=== PATIENT | female | born 1980 | race Caucasian/White ===

== ENCOUNTER 2018-08-22 07:26 | Day surgery (SDC) | payer OTHER ==
--- NOTE | 2018-08-04 01:30 | PREOPHP ---
DATE OF ADMISSION: 08/08/2018 The patient is having a D and C on 08/01/2018, hysteroscopy, removal of embedded IUD. HISTORY OF PRESENT ILLNESS: This is a 38-year-old female 1, para 1 with a history of a C-sec tion, appendectomy and a Mirena IUD that was inserted in 10/2017. She had the IUD also placed becaus e of her size 308 pounds and she was given the IUD instead of Depo shot that she was getting due to h er menometrorrhagia. The patient had an MRI that revealed that the situation of the IUD was near the cervix. The patient had the IUD string that was visible but it was not coming out easily for which the MRI was done and the MRI revealed that the IUD is embedded in the cervix. The patient would like to have another IUD because that is the only thing that helps for her menometrorrhagia. This will b e done after the removal of this IUD and to apply a new IUD after that. The patient also had a histo ry of a left Bartholin's cyst that was asymptomatic and uveitis. ALLERGIES: THE PATIENT DOES NOT HAVE ANY ALLERGIES. Her blood pressure is normal. REVIEW OF SYSTEMS: Negative for cardiovascular disease, negative for lung disease. She states she w as diagnosed with fibromyalgia and arthritis. SOCIAL HISTORY: She has no history of smoking or drinking. MEDICATIONS: She has been on: 1. Omeprazole. 2. Zantac. 3. Eye drops. PHYSICAL EXAMINATION: VITAL SIGNS: The patient weighs 308 pounds. Blood pressure is 110/60, respirations 16. HEAD AND NECK: Normal. CHEST: Clear. HEART: Normal sinus rhythm. LUNGS: Clear. ABDOMEN: Soft, nontender. No masses. BACK: Normal. GENITALIA: Negative. The cervix string. Uterus is retroverted and flexed, nonpalpable. Adne xa are negative. EXTREMITIES: Normal. DIAGNOSES: Malpositioned intrauterine device embedded in the cervical area with possible perforation and a history of left Bartholin's cyst. PLAN: She is undergoing a D and C hysteroscopy. She has been advised of the possible risks and poss ible complications of the procedure with her alternatives and options. Written information was provi ded. She had no more questions and agreed to go ahead with the procedure with full understanding and no more questions. Dictated By: LUIS CARLOS FERNANDES/WILMA Conf#: [id number] DID#: [id number]
--- NOTE | 2018-08-18 12:00 | PREOPHP ---
DATE OF ADMISSION: 08/08/2018 HISTORY OF PRESENT ILLNESS: This is a 38-year-old female 1, para 1 patient with a history of being morbidly obese with 1 previous , appendectomy and eye surgery. The patient has a his tory of abnormal uterine bleeding that had recovered and got better only with the Mirena IUD. The ul trasound obtained at the end of the last year revealed that the IUD was penetrating the uterus perfor ating with a history of morbid obesity. The bleeding was only controlled but the patient would like to have the removal of the IUD for future injection of another IUD after her healing. The patient wa s given an option of the Depo shot and to wait for 3 months for another IUD. The patient had a histo ry of irregular left Bartholin's cyst that was also asymptomatic and otherwise she has been healthy. She had uveitis and the left Bartholin cyst that was asymptomatic. 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 PAST MEDICAL HISTORY: Eye surgery, , appendectomy. MEDICATIONS: 1. Omeprazole. 2. Zantac. 3. Eye drops. FAMILY HISTORY: No issues with hypertension. No issues with any lung disease. Family history of di abetes. SOCIAL HISTORY: She does not drink or smoke. She has no diabetes and she has no other contributing factors in her physical examination. ALLERGIES: The patient has no history of drugs. ALLERGIES: She has no allergies. PHYSICAL EXAMINATION: VITAL SIGNS: Patient is 5 feet 7 inches and she weighs 308 pounds. Blood pressure is 110/60, pulse is 80, respirations 16. HEAD AND NECK: Normal. CHEST: Clear. BREASTS: Normal. HEART: Normal sinus rhythm. BACK: Normal. ABDOMEN: Soft, nontender, no masses. GENITALIA: Normal external genitalia. Uterus retroverted, flexed, nonpalpable due to her obesity an d nontender at this time. RECTAL: Negative. EXTREMITIES: Normal. DIAGNOSES: 1. Morbid obesity. 2. Menometrorrhagia. 3. Uveitis. 4. Asymptomatic left Bartholin's cyst. 5. Mirena IUD perforating her uterus. PLAN: She is undergoing a fractional D and C, removal of IUD and hysteroscopy. She has been advised of the possible risks and possible complications of the procedure with her alternatives and options. Written information was provided. She had no more questions and agreed to go ahead with the proced ure with full understanding and no more questions. Dictated By: LUIS CARLSO FERNANDES/NTS Conf#: [id number] DID#: [id number]
[~2018-08-22] VITALS: Ht 170.2 cm; Wt 139.0 kg
[2018-08-22] VITALS (9 sets, daily range): BP systolic 102–114; BP diastolic 51–61; PULSE 60–100; RESP 12–60; Ht 170.2 cm; Wt 139.0 kg
[~2018-08-22 07:26] MED LIST: CEFAZOLIN 1 GM INJ ONE
[2018-08-22] MEDS ORDERED: CEFAZOLIN 2 GM/50 ML (PMX) 50 ML IVPB ONE (08:00)
[2018-08-22] MEDS ORDERED: BRIM10DR10 RIGHT EYE (08:08)
[2018-08-22] MEDS ORDERED: PRED5DRO20 BOTH EYES (08:08)
[2018-08-22] MEDS ORDERED: IBUP-1544 ORAL (08:08)
[2018-08-22] MEDS ORDERED: OMEP40CA6 ORAL (08:08)
[2018-08-22] MEDS ORDERED: RANI150T5 ORAL (08:08)
[2018-08-22] MEDS ORDERED: DORZ10DR6 RIGHT EYE (08:08)
[2018-08-22] MEDS ORDERED: ACET250T22 ORAL (08:08)
--- NOTE | 2018-08-22 08:57 | PREAC ---
Date/Time of Note Date/Time of Note DATE: 08/22/18 TIME: 08:56 Anesthesia Eval and Record Evaluation Time Pre-Procedure Interview DATE: 08/22/18 TIME: 08:56 Age 38 Sex female NPO: 8 hrs Preoperative diagnosis entrapped IUD Planned procedure D&C, hysteroscopy Past Medical History Past Medical History: Includes Cardio: Dyslipidemia Endo: Diabetes GI: GERD, Morbid obesity Surgery & Anesthesia Issues No known issue Meds Anticoagulation: No Beta Leidy within 24 hr: No Reason Beta Leidy not given: Pt. not on B-Leidy Reported Medications Omeprazole* (Omeprazole*) 40 Mg Capsule.dr, 40 MG ORAL DAILY 08/22/18 Ranitidine Hcl* (Ranitidine Hcl*) 150 Mg Tablet, 150 MG ORAL BID 08/22/18 Ibuprofen* (Ibuprofen*) 800 Mg Tablet, 800 MG ORAL Q6 PRN for PAIN LEVEL 6-10 08/22/18 Dorzolamide/Timolol* (Dorzolamide/Timolol*) 10 Ml Drops, 1 DROP OP BID 08/22/18 Brimonidine Tartrate* (Brimonidine Tartrate*) 0.15%-10ML Drop Opht, 1 DROP OP BID 08/22/18 Prednisolone Acetate* (Pred Forte*) 5 Ml Susp, 1 DROP OP BID 08/22/18 Acetazolamide* (Acetazolamide*) 250 Mg Tablet, 1 TAB ORAL BID 08/22/18 Meds reviewed: Yes Allergies Coded Allergies: No Known Allergy (Unverified , 08/22/18) Allergies Reviewed: Yes Labs/Studies Labs Reviewed: Reviewed by anesthesiologist test: Negative Pre-procedure Exam Last vitals Vital Signs Date Temp Pulse Resp B/P (MAP) Pulse Ox O2 O2 Flow FiO2 Time Delivery Rate 08/22/18 97.3 60 60 110/55 99 Room Air 08:44 (73) Airway: Adequate mouth opening, Adequate thyromental dist Mallampati: Mallampati II Teeth: Normal Lung: Normal Heart: Normal ASA Physical Status ASA physical status: 3 Emergency: None Planned Anesthetic General/MAC: Mask, ETT, LMA, MAC Neuraxial: Spinal Pre-operative Attestations Prior to commencing anesthesia and surgery, the patient was re-evaluated, there was verification of: *The patient's identity *The results of appropriate recent lab work and preoperative vital signs *The above evaluation not changing prior to induction *Anesthetic plan, risk benefits, alternative and complications discussed with patient/family; questions answered; patient/family understands, accepts and wishes to proceed. MARY ANN RUTLEDGE Aug 22, 2018 08:57
[2018-08-22] MEDS ORDERED: FENTAnyl 50 MCG/ML VIAL IV PRN ×2 (09:00)
[2018-08-22] MEDS ORDERED: ALBUTEROL 0.083% (NEB) 2.5 MG/3 ML AMP HHN PRN (09:00)
[2018-08-22] MEDS ORDERED: METOCLOPRAMIDE 10 MG INJ IV PRN (09:00)
[2018-08-22] MEDS ORDERED: ONDANSETRON 4 MG INJ IV PRN ×2 (09:00→11:30)
[2018-08-22] MEDS ORDERED: MEPERIDINE 25 MG INJ IV PRN (09:00)
[2018-08-22] MEDS ORDERED: DIPHENHYDRAMINE 50 MG INJ IV PRN (09:00)
[2018-08-22] MEDS ORDERED: HYDROmorphONE 1 MG/5 ML IV SYRINGE IV PRN ×3 (09:00)
--- NOTE | 2018-08-22 09:30 | HPN ---
Date/Time of Note Date/Time of Note DATE: 08/22/18 TIME: 09:29 Interval H&P Admission Note Pt. seen H&P reviewed: No system changes LUIS CARLOS GILMORE MD Aug 22, 2018 09:30
[2018-08-22] MEDS ORDERED: MIDAZOLAM 1 MG/ML 2 ML INJ ONE (09:51)
[2018-08-22] MEDS ORDERED: BUPIVACAINE 0.75%/DEXT (SPINAL) 2 ML INJ ONE (09:51)
[2018-08-22] MEDS ORDERED: PHENYLephrine (100 MCG/ML) 10ML SYG ONE (09:52)
[2018-08-22] MEDS ORDERED: ONDANSETRON 4 MG INJ ONE ×2 (09:55→10:01)
--- NOTE | 2018-08-22 10:55 | PD.PPDC ---
PUBLIC RELATIONS PROFESSIONAL Discharge Instruction Condition [id number] Patient Condition: Dkbjp1b Good Diet Xparn4Dm Diet: Cnbrh9q Resume Regular Diet Activity/Restrictions Drnyn2Ae Activity: Iyuxm0g Normal Activity May Shower [id number] Restrictions: Xibem2r No Exercising No Lifting No Driving No Sexual Activity Nothing in the Vagina No [place] No Tampons, douche Follow-up Follow-up with Physician: 2, Week/Weeks Return to clinic for [id number] SUPERVISOR WOUND Instructions: Kimjf5d Fever greater than 101 Chills Worsening abdominal pain Excessive Vaginal Bleeding More than 2 pads per hour Unable to tolerate diet LUIS CARLOS GILMORE MD Aug 22, 2018 10:55
--- NOTE | 2018-08-22 11:05 | SIPON ---
Date/Time of Note Date/Time of Note DATE: 08/22/18 TIME: 11:04 Operative Report Preoperative Diagnosis Intractable menometrorrhagia morbid obesity IUD perforating uterus Postoperative Diagnosis Same Operation/Procedure Performed D&C hysteroscopy Surgeon see signature line psychiatric assistant None Anesthesia: general, spinal Estimated blood loss: 0 - 10 ml's Transfusion Required none Specimen Endometrial contents and IUD Grafts/Implants none Complications none LUIS CARLOS GILMORE MD Aug 22, 2018 11:05
[2018-08-22] MEDS ORDERED: KETOROLAC 30 MG INJ IV PRN (11:30)
--- NOTE | 2018-08-22 13:37 | OPR ---
DATE OF OPERATION: 08/22/2018 PROCEDURES: Diagnostic D and C, hysteroscopic ablation of endometrium with TruClear machine. PREOPERATIVE DIAGNOSES: 1. Intractable menometrorrhagia. 2. Morbid obesity. 3. Intrauterine device perforating the uterus. SURGEON: Luis Carlos Boykin MD ANESTHESIOLOGIST: Woo Turcios MD ANESTHESIA: Spinal. DESCRIPTION OF PROCEDURE: The patient was given a spinal anesthesia, placed in the supine position. The abdomen was prepped and draped. The perineal and vaginal area were prepped and draped. Examina tion under anesthesia revealed that the uterus was normal size, high in the pelvis, mobile, nontender . Adnexa were nonpalpable. The vaginal speculum was applied. The cervix was held and the IUD strin g was pulled and the IUD came off, coming out of the cervical perforation. The uterus was dilated sl ightly up to 7 mm trocar and the hysteroscope was applied. The visualization of the endometrial cavi ty revealed that there were abundant polyps that were all over the lateral wall and posterior and ant erior wall. Shaving of the cavity was done with the TruClear hysteroscope and then this was done to the anterior, posterior, lateral chapman. There was lots of ____ at the level of the cervix for which ____ pressure and we decided to go ahead with the regular curet. The hysteroscope was removed and th e curettage of the lining of the uterus was done obtaining tissue for histopathology. The procedure was finished by removing all the instruments. The patient tolerated the procedure well and left the OR awake and stable. Sponge counts and instrument counts were correct. Intravenous antibiotics were given for prophylaxis. Blood loss was minimal. The urine was clear at the end of the procedure. Dictated By: LUIS CARLOS FERNANDES/WILMA Conf#: [id number] DID#: [id number]
--- NOTE | 2018-08-22 15:11 | RADRPT ---
Vent Rate: 58 bpm RR Interval: 0 msec WA Interval: 124 msec QRS Duration: 88 msec QT Interval: 432 msec QTC Interval: 424 msec P-R-T [place]: 25 - 28 - 43 degrees Sinus bradycardia Otherwise normal ECG Electronically Signed By: Heath De La Fuente
--- NOTE | 2018-08-25 07:36 | PAC ---
Date/Time of Note Date/Time of Note DATE: 08/25/18 TIME: 07:36 Post-Anesthesia Notes Post-Anesthesia Note Last documented vital signs Vital Signs Date Temp Pulse Resp B/P (MAP) Pulse Ox O2 O2 Flow FiO2 Time Delivery Rate 08/22/18 97.3 60 16 110/55 99 13:30 (73) 08/22/18 Room Air 11:04 Activity: WNL Respiratory function: WNL Cardiovascular function: WNL Mental status: Baseline Pain reasonably controlled: Yes Hydration appropriate: Yes Nausea/Vomiting absent: Yes MARY ANN RUTLEDGE Aug 25, 2018 07:36
== END 2018-08-22 16:40 | disposition home or self-care (01) ==
LOC: SDS 07:26
PROVIDERS: ATTEND Obstetrics & Gynecology
DX: N92.1 Excessive and frequent menstruation with irregular cycle (principal); T83.83XA Hemorrhage due to genitourinary prosthetic devices, implants and grafts, initial encounter; Y84.8 Other medical procedures as the cause of abnormal reaction of the patient, or of later complication, without mention of misadventure at the time of the procedure; Y76.1 Therapeutic (nonsurgical) and rehabilitative obstetric and gynecological devices associated with adverse incidents; E66.01 Morbid (severe) obesity due to excess calories; Z68.42 Body mass index [BMI] 45.0-49.9, adult; E78.5 Hyperlipidemia, unspecified; E11.9 Type 2 diabetes mellitus without complications
CPT/HCPCS: 58563; 84703; 88300; 88305; 93005; J1885; J2250; J2370; J2405; Z7512; Z7610; J0690

== ENCOUNTER 2018-08-26 17:36 | Inpatient (IN) | payer OTHER ==
[~2018-08-26] VITALS: Ht 170.2 cm; Wt 140.0 kg
[~2018-08-26 17:36] MED LIST changes: +ACET250T22 ORAL; +BRIM10DR10 RIGHT EYE; -CEFAZOLIN 1 GM INJ ONE; +DORZ10DR6 RIGHT EYE; +IBUP-1544 ORAL; +OMEP40CA6 ORAL; +PRED5DRO20 BOTH EYES; +RANI150T5 ORAL
[2018-08-26 20:15] VITALS: BP 118/59; RESP 18
--- NOTE | 2018-08-26 20:47 | HP ---
Date/Time of Note Date/Time of Note DATE: 08/26/18 TIME: 20:46 Assessment/Plan VTE Prophylaxis SCD applied (from Nsg): Yes Pharmacological prophylaxis: NA/contraindicated Pharm contraindication: low risk/ambulating Assessment/Plan Hospital Course This is a 38-year [facility]: #1 postdural headache: Status post spinal anesthesia from OB surgery. Fioricet every 6 hours. Patient did receive morphine at the transferring facility, and she is hesitant to try p.o. meds. I did discuss this with her and she is willing to try Fioricet at the current time she is requesting morphine given her pain and that it helped at the transferring facility. Will defer to day team and consulting IR for blood patch placement. #2 Postop vaginal bleeding: Patient is status post D&C and removal of IUD. She is reporting vaginal bleeding which she was told by the OB would be expected. Patient reports she has used approximately 6 pads in 2 days. Continue to monitor this if bleeding continues consult OB. #3 glaucoma: Continue home eyedrops #4 morbid obesity: We will check hemoglobin A1c, lipid panel, TSH #5 Fibromyalgia: Monitor pain closely, follow-up outpatient #6 rheumatoid arthritis: Currently not on any medications #7 DVT GI prophylaxis: SCDs, no GI prophylaxis indicated Further treatment strategy will be implemented as per the clinical course. HPI/ROS Admit Date/Time Admit Date/Time Aug 26, 2018 at 19:44 Hx of Present Illness Chief complaint:: Vaginal bleeding this is a 38-year-old female With a past medical history of fibromyalgia and rheumatoid arthritis who presented to [facility] complaining of vomiting for more than 5 days. Patient also has nausea and abdominal pain or vaginal bleeding with approximately 6 pads over the past 2 days. She will reported migraines as well as dizziness and feeling off balance. She denies any fevers chills or cough or chest pain or shortness of breath. Patient had a D&C and IUD removal on 08/22/2018 by . Because she continued to have her bleeding symptoms she contacted her OB doctor who told her to go to [facility]. Patient subsequently transferred to [facility] secondary to insurance purposes. Vital signs at [facility]: Temperature 36.9C/BP 150/78/respirations 20/heart rate 59/SPO2 91% on room air Pertinent laboratory findings from transfer facility showed: Urinalysis large blood, specific gravity 1.050 CBC: White blood cells 11.8/hemoglobin 12.5/hematocrit 39.5/platelets 280 INR 1.3 PT [address] abdomen pelvis with IV contrast showed: No acute inflammatory process mass or adenopathy. Cholelithiasis no obvious CT evidence of acute cholecystitis. Fatty change of liver. 1.6 cm Bartholin gland cyst in the vaginal. No secondary signs of appendicitis. Bilateral ovarian cysts/follicles. If indicated this can be better evaluated pelvic ultrasound. Allergies: NKDA Medications: See Aug Const: As per HPI Eyes : No pain discharge or redness or change in visual acuity ENT: No pain, sore throat, congestion, congestion, dysphagia or discharge Respiratory: No shortness of breath, cough, sputum, wheezing, or pleuritic pain Cardiovascular: No chest pain, palpitation, PND, or edema GI : no change in appetite, abdominal pain, nausea, vomiting, diarrhea, constipation, or change in the color his stool Genitourinary: No dysuria, hematuria, flank pain , discharge or CVA tenderness Musculoskeletal: No joint pain, back pain, neck pain, restricted range of motion in neck or joints Skin: No rash, bruising or hives Neuro: As per HPI Endocrine: No polyuria, polydipsia, temperature intolerance Psych: No hallucination, depression, anxiety or suicidal ideation PMH/Family/Social Past Medical History Fibromyalgia, arthritis, menometrorrhagia Medications Current Medications IV Flush (NS 3 ml) 3 ml PER PROTOCOL IV ; Start 08/26/18 at 21:00 Ondansetron HCl (Zofran Inj) 4 mg Q6H PRN IV NAUSEA/VOMITING; Start 08/26/18 at 21:00 Acetaminophen (Tylenol Tab) 650 mg Q6H PRN PO .PAIN 1-3 OR TEMP; Start 08/26/18 at 21:00 Docusate Sodium (Colace) 100 mg Q12H PRN PO .CONSTIPATION; Start 08/26/18 at 21:00 Bisacodyl (Dulcolax) 5 mg DAILY PRN PO .CONSTIPATION; Start 08/26/18 at 21:00 Acetaminophen/ Butalbital/ Caffeine (Fioricet) 1 tab Q4H PRN PO PAIN; Start 08/26/18 at 21:00 Coded Allergies: No Known Allergy (Unverified , 08/22/18) Past Surgical History , appendectomy, and a Mirena IUD that was inserted in 10/2017, Diagnostic D and C, hysteroscopic ablation of endometrium 08/22/2018 Family History Significant Family History: no pertinent family hx Social History Alcohol Use: none Smoking Status: Never smoker Drug Use: none Exam/Review of Systems Exam Exam General: Patient is a pleasant female currently lying in bed in moderate distress from her headache HEENT: Atraumatic, normocephalic. The pupils are equal, round and reactive. Extraocular motor are intact Neck: Supple with full range of motion. No rigidity or meningismus Chest: Nontender Lungs: Clear to auscultation bilaterally no crackles rales or wheezing Heart: Normal S1-S2, Regular rhythm and rate. No murmur, S3, or S4 Abdomen: Morbidly obese, soft , nontender, nondistended , bowel sounds are present. No guarding no rebound tenderness , No masses or organomegaly. No costovertebral temporal angle mass Extremities: Normal to inspection, no edema no cyanosis Neurologic: Normal mental status, speech normal, cranial nerves II through XII are intact, motor and sensory are intact, Skin: Bruising/ecchymosis noted from epidural site CINDY BISHOP Aug 26, 2018 20:47
[2018-08-26] MEDS ORDERED: ACETAMINOPHEN 325 MG TAB PO PRN (21:00)
[2018-08-26] MEDS ORDERED: BISACODYL (EC) 5 MG TAB PO PRN (21:00)
[2018-08-26] MEDS ORDERED: NACL 0.9% 3 ML SYG IV SCH (21:00)
[2018-08-26] MEDS ORDERED: DOCUSATE SODIUM 100 MG CAP PO PRN (21:00)
[2018-08-26 23:01] VITALS: Ht 170.2 cm; Wt 140.0 kg
[2018-08-26] MEDS: ONDANSETRON 4 MG INJ IV PRN (23:38)
[2018-08-26] MEDS: ACET/BUTAL/CAFF TAB PO PRN (23:38)
[2018-08-26] MEDS: morphine 2 MG INJ IV PRN (23:49)
[2018-08-26] MEDS ORDERED: PANTOPRAZOLE 40 MG INJ IV ONE (23:55)
[2018-08-27 00:49] VITALS: BP 107/54; PULSE 60; RESP 17
[2018-08-27] MEDS ORDERED: POTASSIUM CHLORIDE (SR) 20 MEQ TAB PO STA (01:32)
[2018-08-27] MEDS ORDERED: RHOPRESSA BOTH EYES (03:15)
[2018-08-27] MEDS: ACET/BUTAL/CAFF TAB PO PRN ×3 (03:32→21:03)
[2018-08-27] MEDS: morphine 2 MG INJ IV PRN ×3 (04:26→22:16)
[2018-08-27] MEDS: METOCLOPRAMIDE 10 MG INJ IV PRN ×2 (04:26→21:20)
[2018-08-27] MEDS: PANTOPRAZOLE (EC) 40 MG TAB PO SCH ×2 (06:00→08:49)
[2018-08-27] MEDS: PANTOPRAZOLE 40 MG INJ IV SCH (06:00)
[2018-08-27 08:23] VITALS: BP 100/55; PULSE 70; RESP 18
[2018-08-27] MEDS: PREDNISOLONE ACET 1% 5 ML OPH BOTH EYES SCH ×2 (08:42→21:24)
[2018-08-27] MEDS: DORZOLAMIDE/TIMOLOL 10 ML OPH RIGHT EYE SCH ×2 (08:42→22:12)
[2018-08-27] MEDS: BRIMONIDINE 0.15% 5 ML OPH RIGHT EYE SCH ×2 (08:42→22:16)
[2018-08-27] MEDS ORDERED: MAGNESIUM SULFATE 2 GM/50 ML 50 ML IVPB ONE (10:00)
[2018-08-27] MEDS ORDERED: POTASSIUM CHLORIDE 100 ML IVPB SCH (10:00)
[2018-08-27] MEDS: BACLOFEN 10 MG TAB PO PRN (11:49)
[2018-08-27 15:02] VITALS: BP 123/63; PULSE 72; RESP 18
--- NOTE | 2018-08-27 15:38 | PN ---
Date/Time of Note Date/Time of Note DATE: 08/27/18 TIME: 15:30 Assessment/Plan VTE Prophylaxis Risk score (from Nsg)>0 risk: 3 SCD applied (from Nsg): Yes SCD contraindicated: low risk/ambulating Pharmacological prophylaxis: NA/contraindicated Pharm contraindication: low risk/ambulating Lines/Catheters IV Catheter Type (from Nrsg): Peripheral IV Assessment/Plan Assessment/Plan 38 yo morbidly obese woman with postural headache and vomiting after D&C with IUD removal. # postural headache: - Status post spinal anesthesia from OB surgery. - Fioricet every 6 hours. - Symptoms appear to be improving. Will hold off on blood patch. # Postop vaginal bleeding: - Patient is status post D&C and removal of IUD. - Currently report soaking 3 pads per day. - Will consult Dr. Mccabe # glaucoma: Continue home eyedrops # morbid obesity: We will check hemoglobin A1c, lipid panel, TSH # Fibromyalgia: Monitor pain closely, follow-up outpatient # rheumatoid arthritis: Currently not on any medications # DVT GI prophylaxis: SCDs, no GI prophylaxis indicated Result Diagram: 08/27/18 0434 08/27/18 0434 Subjective 24 Hr Interval Summary Free Text/Dictation Tolerating diet, mild nausea, no more vomiting. Reports migraine today similar to migraine 10 years ago. Able to stand with minimal assistance. Reports sensation of "fluid dripping down face", but no worsening headache. Able to shower today. Exam/Review of Systems Exam Vitals Vital Signs Date Temp Pulse Resp B/P (MAP) Pulse Ox O2 O2 Flow FiO2 Time Delivery Rate 08/27/18 98.4 70 18 100/55 97 Room Air 08:23 (70) Intake and Output 08/26/18 08/26/18 08/27/18 1515:00 23:00 07:00 IntakeIntake Total 240 ml OutputOutput Total 1 ml BalanceBalance 239 ml Exam Gen: Morbidly obese woman in some discomfort. Eyes: Pupils nonreactive bilaterally. Both eyes soft to palpation. HEENT: Moist mucous membranes, clear oropharynx Neck: No lymphadenopathy Card: Regular rate and rhythm, no murmurs Pulm: Clear to auscultation bilaterally. Abd: Soft, nontender, nondistended. Back: Lumbar spine ecchymosis without palpable hematoma; nontender. Ext: No cyanosis/clubbing/edema Results Results 24hrs Laboratory Tests Test 08/26/18 20:59 08/27/18 04:34 White Blood Count 10.3 10.4 Red Blood Count 3.86 L 3.92 L Hemoglobin 11.3 L 11.5 L Hematocrit 35.4 L 36.2 L Mean Corpuscular Volume 91.7 92.3 Mean Corpuscular Hemoglobin 29.3 29.3 Mean Corpuscular Hemoglobin Concent 31.9 L 31.8 L Red Cell Distribution Width 13.3 13.3 Platelet Count 274 294 Mean Platelet Volume 10.7 H 11.2 H Immature Granulocytes % 0.300 0.400 Neutrophils % 50.5 54.5 Lymphocytes % 39.1 35.7 Monocytes % 7.4 6.0 Eosinophils % 2.1 2.6 Basophils % 0.6 0.8 Nucleated Red Blood Cells % 0.0 0.0 Immature Granulocytes # 0.030 0.040 H Neutrophils # 5.2 5.7 Lymphocytes # 4.0 H 3.7 H Monocytes # 0.8 0.6 Eosinophils # 0.2 0.3 Basophils # 0.1 0.1 Nucleated Red Blood Cells # 0.0 0.0 Sodium Level 141 142 Potassium Level 3.2 L 3.2 L Chloride Level 107 108 Carbon Dioxide Level 25 25 Anion Gap 9 9 Blood Urea Nitrogen 9 9 Creatinine 0.66 0.71 Est Glomerular Filtrat Rate mL/min > 60 > 60 Glucose Level 97 114 Calcium Level 8.7 8.7 Magnesium Level 1.7 1.6 L Total Bilirubin 0.3 0.5 Direct Bilirubin 0.00 0.00 Indirect Bilirubin 0.3 0.5 Aspartate Amino Transf (AST/SGOT) 45 44 Alanine Aminotransferase (ALT/SGPT) 69 67 Alkaline Phosphatase 83 82 Total Protein 7.3 7.2 Albumin 3.6 3.7 Globulin 3.70 H 3.50 H Albumin/Globulin Ratio 0.97 1.05 Thyroid Stimulating Hormone (TSH) 2.940 Medications Medication Current Medications IV Flush (NS 3 ml) 3 ml PER PROTOCOL IV ; Start 08/26/18 at 21:00 Ondansetron HCl (Zofran Inj) 4 mg Q6H PRN IV NAUSEA/VOMITING Last administered on 08/26/18at 23:38; Admin Dose 4 MG; Start 08/26/18 at 21:00 Acetaminophen (Tylenol Tab) 650 mg Q6H PRN PO .PAIN 1-3 OR TEMP; Start 08/26/18 at 21:00 Docusate Sodium (Colace) 100 mg Q12H PRN PO .CONSTIPATION; Start 08/26/18 at 2 1:00 Bisacodyl (Dulcolax) 5 mg DAILY PRN PO .CONSTIPATION; Start 08/26/18 at 21:00 Acetaminophen/ Butalbital/ Caffeine (Fioricet) 1 tab Q4H PRN PO PAIN Last administered on 08/27/18 03:32; Admin Dose 1 TAB; Start 08/26/18 at 21:00 Morphine Sulfate (morphine) 2 mg Q4H PRN IV SEVERE PAIN LEVEL 7-10 Last administered on 08/27/18 04:26; Admin Dose 2 MG; Start 08/26/18 at 22:30 Pantoprazole (Protonix Iv) 40 mg DAILY@06 IV ; Start 08/27/18 at 06:00 Brimonidine Tartrate (Alphagan P 0.15%) 1 drop BID RIGHT EYE Last administered on 08/27/18 08:42; Admin Dose 1 DROP; Start 08/27/18 at 09:00 Dorzolamide/ Timolol (Cosopt) 1 drop BID RIGHT EYE Last administered on 08/27/18 08:42; Admin Dose 1 DROP; Start 08/27/18 at 09:00 Prednisolone Acetate (Pred-Forte 1%) 1 drop BID BOTH EYES Last administered on 08/27/18 08:42; Admin Dose 1 DROP; Start 08/27/18 at 09:00 Patient Own Medication 1 ea QHS BOTH EYES ; Start 08/27/18 at 21:00 Metoclopramide HCl (Reglan) 10 mg Q4H PRN IV NAUSEA Last administered on 08/27 04:26; Admin Dose 10 MG; Start 08/27/18 at 04:00 Pantoprazole (Protonix Tab) 40 mg DAILY@06 PO Last administered on 08/27/18 08:49; Admin Dose 40 MG; Start 08/27/18 at 06:00 Baclofen (Lioresal) 10 mg TID PRN PO muscle spasm Last administered on 08/27/18 11:49; Admin Dose 10 MG; Start 08/27/18 at 11:00 DENNIS MCKEON MD Aug 27, 2018 15:38
[2018-08-27] MEDS: ONDANSETRON 4 MG INJ IV PRN (16:52)
[2018-08-27 20:20] VITALS: BP 126/61; PULSE 64; RESP 18
[2018-08-27] MEDS: RHOPRESSA 0.02% BOTH EYES SCH (21:12)
[2018-08-28 01:54] VITALS: BP 114/59; PULSE 64; RESP 19
[2018-08-28] MEDS: METOCLOPRAMIDE 10 MG INJ IV PRN ×3 (03:52→21:13)
[2018-08-28] MEDS: morphine 2 MG INJ IV PRN ×5 (03:55→21:13)
[2018-08-28] MEDS: ACET/BUTAL/CAFF TAB PO PRN ×3 (05:18→21:13)
[2018-08-28] MEDS: PANTOPRAZOLE 40 MG INJ IV SCH (05:18)
[2018-08-28 07:39] VITALS: BP 128/63; PULSE 61; RESP 18
[2018-08-28] MEDS: ONDANSETRON 4 MG INJ IV PRN ×2 (08:16→16:08)
[2018-08-28] MEDS: BRIMONIDINE 0.15% 5 ML OPH RIGHT EYE SCH ×2 (08:20→21:12)
[2018-08-28] MEDS: DORZOLAMIDE/TIMOLOL 10 ML OPH RIGHT EYE SCH ×2 (08:20→21:12)
[2018-08-28] MEDS: PREDNISOLONE ACET 1% 5 ML OPH BOTH EYES SCH ×2 (08:20→21:11)
[2018-08-28 14:48] VITALS: BP 119/56; PULSE 62; RESP 18
--- NOTE | 2018-08-28 16:05 | PN ---
Date/Time of Note Date/Time of Note DATE: 08/28/18 TIME: 15:54 Assessment/Plan VTE Prophylaxis Risk score (from Nsg)>0 risk: 1 SCD applied (from Ns): Yes Pharmacological prophylaxis: NA/contraindicated Pharm contraindication: low risk/ambulating Lines/Catheters IV Catheter Type (from Nrsg): Saline Lock Assessment/Plan Assessment/Plan 38 yo morbidly obese woman with postural headache and vomiting after D&C with IUD removal. # postural headache: - Status post epidural anesthesia from OB surgery on 08/22 (Dr. Turcios did the anesthesia) - Fioricet every 6 hours. - Symptoms appear to be improving. Will discuss with anesthesia if blood patch may be warranted, although personally it sounds like symptoms are resolving on their own. # Postop vaginal bleeding: - Patient is status post D&C and removal of IUD. - Currently report soaking 3 pads per day. - consult Dr. Mccabe # glaucoma: Continue home eyedrops # morbid obesity: We will check hemoglobin A1c, lipid panel, TSH # Fibromyalgia: Monitor pain closely, follow-up outpatient # rheumatoid arthritis: Currently not on any medications # DVT GI prophylaxis: SCDs, no GI prophylaxis indicated Result Diagram: 08/28/18 1050 08/28/18 1050 Subjective 24 Hr Interval Summary Free Text/Dictation No acute overnight events. She does continue to report mild headache with positional changes. I tried to reach Dr. Turcios but he's off today. Exam/Review of Systems Exam Vitals Vital Signs Date Temp Pulse Resp B/P (MAP) Pulse Ox O2 O2 Flow FiO2 Time Delivery Rate 08/28/18 98.4 62 18 119/56 97 14:48 (77) 08/27/18 Room Air 15:02 Intake and Output 08/27/18 08/27/18 08/28/18 1414:59 22:59 06:59 IntakeIntake Total 890 ml BalanceBalance 890 ml Exam Gen: Morbidly obese woman in some discomfort. Eyes: Pupils nonreactive bilaterally. Both eyes soft to palpation. HEENT: Moist mucous membranes, clear oropharynx Neck: No lymphadenopathy Card: Regular rate and rhythm, no murmurs Pulm: Clear to auscultation bilaterally. Abd: Soft, nontender, nondistended. Back: Lumbar spine ecchymosis without palpable hematoma; nontender. Ext: No cyanosis/clubbing/edema Results Results 24hrs Laboratory Tests Test 08/28/18 10:50 White Blood Count 8.8 Red Blood Count 4.16 L Hemoglobin 12.1 Hematocrit 38.2 Mean Corpuscular Volume 91.8 Mean Corpuscular Hemoglobin 29.1 Mean Corpuscular Hemoglobin Concent 31.7 L Red Cell Distribution Width 13.2 Platelet Count 303 Mean Platelet Volume 11.5 H Immature Granulocytes % 0.200 Neutrophils % 54.7 Lymphocytes % 36.0 Monocytes % 5.7 Eosinophils % 2.8 Basophils % 0.6 Nucleated Red Blood Cells % 0.0 Immature Granulocytes # 0.020 Neutrophils # 4.8 Lymphocytes # 3.2 H Monocytes # 0.5 Eosinophils # 0.3 Basophils # 0.1 Nucleated Red Blood Cells # 0.0 Sodium Level 138 Potassium Level 3.8 Chloride Level 102 Carbon Dioxide Level 29 Anion Gap 7 Blood Urea Nitrogen 9 Creatinine 0.70 Est Glomerular Filtrat Rate mL/min > 60 Glucose Level 115 Calcium Level 9.1 Phosphorus Level 3.3 Magnesium Level 1.9 Medications Medication Current Medications IV Flush (NS 3 ml) 3 ml PER PROTOCOL IV ; Start 08/26/18 at 21:00 Ondansetron HCl (Zofran Inj) 4 mg Q6H PRN IV NAUSEA/VOMITING Last administered on 08/28/18at 08:16; Admin Dose 4 MG; Start 08/26/18 at 21:00 Acetaminophen (Tylenol Tab) 650 mg Q6H PRN PO .PAIN 1-3 OR TEMP; Start 08/26/18 at 21:00 Docusate Sodium (Colace) 100 mg Q12H PRN PO .CONSTIPATION; Start 08/26/18 at 21:00 Bisacodyl (Dulcolax) 5 mg DAILY PRN PO .CONSTIPATION Last administered on 08/28/18at 15:44; Admin Dose 5 MG; Start 08/26/18 at 21:00 Acetaminophen/ Butalbital/ Caffeine (Fioricet) 1 tab Q4H PRN PO PAIN Last administered on 08/28/18at 13:03; Admin Dose 1 TAB; Start 08/26/18 at 21:00 Morphine Sulfate (morphine) 2 mg Q4H PRN IV SEVERE PAIN LEVEL 7-10 Last administered on 08/28/18at 12:00; Admin Dose 2 MG; Start 08/26/18 at 22:30 Pantoprazole (Protonix Iv) 40 mg DAILY@06 IV Last administered on 08/28/18 05:18; Admin Dose 40 MG; Start 08/27/18 at 06:00 Brimonidine Tartrate (Alphagan P 0.15%) 1 drop BID RIGHT EYE Last administered on 08/28/18 08:20; Admin Dose 1 DROP; Start 08/27/18 at 09:00 Dorzolamide/ Timolol (Cosopt) 1 drop BID RIGHT EYE Last administered on 08/28/18 08:20; Admin Dose 1 DROP; Start 08/27/18 at 09:00 Prednisolone Acetate (Pred-Forte 1%) 1 drop BID BOTH EYES Last administered on 08/28/18 08:20; Admin Dose 1 DROP; Start 08/27/18 at 09:00 Patient Own Medication 1 ea QHS BOTH EYES Last administered on 08/27/18 21:12; Admin Dose 1 EA; Start 08/27/18 at 21:00 Metoclopramide HCl (Reglan) 10 mg Q4H PRN IV NAUSEA Last administered on 08/28/18 12:00; Admin Dose 10 MG; Start 08/27/18 at 04:00 Pantoprazole (Protonix Tab) 40 mg DAILY@06 PO Last administered on 08/27/18 08:49; Admin Dose 40 MG; Start 08/27/18 at 06:00 Baclofen (Lioresal) 10 mg TID PRN PO muscle spasm Last administered on 08/27/18 11:49; Admin Dose 10 MG; Start 08/27/18 at 11:00 DENNIS MCKEON MD Aug 28, 2018 16:04
[2018-08-28 19:15] VITALS: BP 109/52; PULSE 75; RESP 18
[2018-08-28] MEDS: RHOPRESSA 0.02% BOTH EYES SCH (21:11)
[2018-08-29 02:20] VITALS: BP 102/50; PULSE 64; RESP 20
[2018-08-29] MEDS: PANTOPRAZOLE (EC) 40 MG TAB PO SCH ×2 (05:54→08:24)
[2018-08-29 07:47] VITALS: BP 123/63; PULSE 66; RESP 18
[2018-08-29] MEDS: PREDNISOLONE ACET 1% 5 ML OPH BOTH EYES SCH ×2 (08:20→21:45)
[2018-08-29] MEDS: BRIMONIDINE 0.15% 5 ML OPH RIGHT EYE SCH ×2 (08:20→21:46)
[2018-08-29] MEDS: DORZOLAMIDE/TIMOLOL 10 ML OPH RIGHT EYE SCH ×2 (08:20→21:45)
--- NOTE | 2018-08-29 14:59 | PN ---
Date/Time of Note Date/Time of Note DATE: 08/29/18 TIME: 14:56 Assessment/Plan VTE Prophylaxis Risk score (from Nsg)>0 risk: 1 SCD applied (from Ns): Yes Pharmacological prophylaxis: NA/contraindicated Pharm contraindication: low risk/ambulating Lines/Catheters IV Catheter Type (from Nrsg): Saline Lock Urinary Cath still in place: No Assessment/Plan Assessment/Plan 38 yo morbidly obese woman with postural headache and vomiting after D&C with IUD removal. # postural headache: - Status post epidural anesthesia from OB surgery on 08/22 (Dr. Turcios did the anesthesia) - Fioricet every 6 hours prn - Consulted Dr. Turcios for possible blood patch. # Postop vaginal bleeding: - Patient is status post D&C and removal of IUD. - Symptoms have resolved, now just spotting. # glaucoma: Continue home eyedrops # Fibromyalgia: Monitor pain closely, follow-up outpatient # rheumatoid arthritis: Currently not on any medications # DVT GI prophylaxis: SCDs, no GI prophylaxis indicated Result Diagram: 08/28/18 1050 08/28/18 1050 Subjective 24 Hr Interval Summary Free Text/Dictation She did require morphine and fioricet again last night. This morning reports she just has a "regular headache", no migraine. Tolerating diet, no nausea or vomiting. Exam/Review of Systems Exam Vitals Vital Signs Date Temp Pulse Resp B/P (MAP) Pulse Ox O2 O2 Flow FiO2 Time Delivery Rate 08/29/18 98.2 66 18 123/63 92 Room Air 07:47 (83) Intake and Output 08/28/18 08/28/18 08/29/18 1414:59 22:59 06:59 IntakeIntake Total 100 ml 200 ml OutputOutput Total 1 ml BalanceBalance 100 ml 199 ml Exam Gen: Morbidly obese woman in some discomfort. Eyes: Pupils nonreactive bilaterally. Both eyes soft to palpation. HEENT: Moist mucous membranes, clear oropharynx Neck: No lymphadenopathy Card: Regular rate and rhythm, no murmurs Pulm: Clear to auscultation bilaterally. Abd: Soft, nontender, nondistended. Back: Lumbar spine ecchymosis without palpable hematoma; nontender. Ext: No cyanosis/clubbing/edema Medications Medication Current Medications IV Flush (NS 3 ml) 3 ml PER PROTOCOL IV ; Start 08/26/18 at 21:00 Ondansetron HCl (Zofran Inj) 4 mg Q6H PRN IV NAUSEA/VOMITING Last administered on 08/28/18 16:08; Admin Dose 4 MG; Start 08/26/18 at 21:00 Acetaminophen (Tylenol Tab) 650 mg Q6H PRN PO .PAIN 1-3 OR TEMP; Start 08/26/18 at 21:00 Docusate Sodium (Colace) 100 mg Q12H PRN PO .CONSTIPATION; Start 08/26/18 at 21:00 Bisacodyl (Dulcolax) 5 mg DAILY PRN PO .CONSTIPATION Last administered on 08/28/18 15:44; Admin Dose 5 MG; Start 08/26/18 at 21:00 Acetaminophen/ Butalbital/ Caffeine (Fioricet) 1 tab Q4H PRN PO PAIN Last administered on 08/28/18 21:13; Admin Dose 1 TAB; Start 08/26/18 at 21:00 Morphine Sulfate (morphine) 2 mg Q4H PRN IV SEVERE PAIN LEVEL 7-10 Last administered on 08/28/18 21:13; Admin Dose 2 MG; Start 08/26/18 at 22:30 Brimonidine Tartrate (Alphagan P 0.15%) 1 drop BID RIGHT EYE Last administered on 08/29/18 08:20; Admin Dose 1 DROP; Start 08/27/18 at 09:00 Dorzolamide/ Timolol (Cosopt) 1 drop BID RIGHT EYE Last administered on 08/29/18 08:20; Admin Dose 1 DROP; Start 08/27/18 at 09:00 Prednisolone Acetate (Pred-Forte 1%) 1 drop BID BOTH EYES Last administered on 08/29/18 08:20; Admin Dose 1 DROP; Start 08/27/18 at 09:00 Patient Own Medication 1 ea QHS BOTH EYES Last administered on 08/28/18 21:11; Admin Dose 1 EA; Start 08/27/18 at 21:00 Metoclopramide HCl (Reglan) 10 mg Q4H PRN IV NAUSEA Last administered on 08/28/18 21:13; Admin Dose 10 MG; Start 08/27/18 at 04:00 Pantoprazole (Protonix Tab) 40 mg DAILY@06 PO Last administered on 08/29/18at 08:24; Admin Dose 40 MG; Start 08/27/18 at 06:00 Baclofen (Lioresal) 10 mg TID PRN PO muscle spasm Last administered on 08/27/18at 11:49; Admin Dose 10 MG; Start 08/27/18 at 11:00 DENNIS MCKEON MD Aug 29, 2018 14:59
--- NOTE | 2018-08-29 15:25 | PREAC ---
Date/Time of Note Date/Time of Note DATE: 08/29/18 TIME: 15:24 Anesthesia Eval and Record Evaluation Time Pre-Procedure Interview DATE: 08/29/18 TIME: 15:24 Age 38 Sex female NPO: 8 hrs Preoperative diagnosis Post dural Puncture Headache Planned procedure Epidural Blood Patch Past Medical History Past Medical History: Includes GI: Obesity Surgery & Anesthesia Issues No known issue Meds Anticoagulation: No Beta Leidy within 24 hr: No Reason Beta Leidy not given: Pt. not on B-Leidy Reported Medications [Rhopressa] No Conflict Check, 1 DROP BOTH EYES QHS 08/27/18 Omeprazole* (Omeprazole*) 40 Mg Capsule.dr, 40 MG ORAL DAILY 08/22/18 Ranitidine Hcl* (Ranitidine Hcl*) 150 Mg Tablet, 150 MG ORAL BID 08/22/18 Ibuprofen* (Ibuprofen*) 800 Mg Tablet, 800 MG ORAL Q6 PRN for PAIN LEVEL 6-10 08/22/18 Dorzolamide/Timolol* (Dorzolamide/Timolol*) 10 Ml Drops, 1 DROP RIGHT EYE BID 08/22/18 Brimonidine Tartrate* (Brimonidine Tartrate*) 0.15%-10ML Drop Opht, 1 DROP RIGHT EYE BID 08/22/18 Prednisolone Acetate* (Pred Forte*) 5 Ml Susp, 1 DROP BOTH EYES BID 08/22/18 Acetazolamide* (Acetazolamide*) 250 Mg Tablet, 1 TAB ORAL BID 08/22/18 Current Medications IV Flush (NS 3 ml) 3 ml PER PROTOCOL IV ; Start 08/26/18 at 21:00 Ondansetron HCl (Zofran Inj) 4 mg Q6H PRN IV NAUSEA/VOMITING Last administered on 08/28/18at 16:08; Admin Dose 4 MG; Start 08/26/18 at 21:00 Acetaminophen (Tylenol Tab) 650 mg Q6H PRN PO .PAIN 1-3 OR TEMP; Start 08/26/18 at 21:00 Docusate Sodium (Colace) 100 mg Q12H PRN PO .CONSTIPATION; Start 08/26/18 at 21:00 Bisacodyl (Dulcolax) 5 mg DAILY PRN PO .CONSTIPATION Last administered on 08/28/18at 15:44; Admin Dose 5 MG; Start 08/26/18 at 21:00 Acetaminophen/ Butalbital/ Caffeine (Fioricet) 1 tab Q4H PRN PO PAIN Last administered on 08/28/18 21:13; Admin Dose 1 TAB; Start 08/26/18 at 21:00 Morphine Sulfate (morphine) 2 mg Q4H PRN IV SEVERE PAIN LEVEL 7-10 Last administered on 08/28/18 21:13; Admin Dose 2 MG; Start 08/26/18 at 22:30 Brimonidine Tartrate (Alphagan P 0.15%) 1 drop BID RIGHT EYE Last administered on 08/29/18 08:20; Admin Dose 1 DROP; Start 08/27/18 at 09:00 Dorzolamide/ Timolol (Cosopt) 1 drop BID RIGHT EYE Last administered on 08/29/18 08:20; Admin Dose 1 DROP; Start 08/27/18 at 09:00 Prednisolone Acetate (Pred-Forte 1%) 1 drop BID BOTH EYES Last administered on 08/29/18 08:20; Admin Dose 1 DROP; Start 08/27/18 at 09:00 Patient Own Medication 1 ea QHS BOTH EYES Last administered on 08/28/18 21:11; Admin Dose 1 EA; Start 08/27/18 at 21:00 Metoclopramide HCl (Reglan) 10 mg Q4H PRN IV NAUSEA Last administered on 08/28/18 21:13; Admin Dose 10 MG; Start 08/27/18 at 04:00 Pantoprazole (Protonix Tab) 40 mg DAILY@06 PO Last administered on 08/29/18 08:24; Admin Dose 40 MG; Start 08/27/18 at 06:00 Baclofen (Lioresal) 10 mg TID PRN PO muscle spasm Last administered on 08/27/18 11:49; Admin Dose 10 MG; Start 08/27/18 at 11:00 Meds reviewed: No Allergies Coded Allergies: No Known Allergy (Unverified , 08/22/18) Allergies Reviewed: No Labs/Studies Labs Reviewed: Reviewed by anesthesiologist Result Diagram: 08/28/18 1050 08/28/18 1050 test: Negative Studies: ECG (n/a), CXR (n/a) Pre-procedure Exam Last vitals Vital Signs Date Temp Pulse Resp B/P (MAP) Pulse Ox O2 O2 Flow FiO2 Time Delivery Rate 3/8/19 98.2 66 18 123/63 92 Room Air 07:47 (83) Airway: Adequate mouth opening, Adequate thyromental dist Mallampati: Mallampati II Teeth: Normal Lung: Normal Heart: Normal ASA Physical Status ASA physical status: 2 Emergency: None Planned Anesthetic Neuraxial: Epidural (Epidural blood patch) Pre-operative Attestations Prior to commencing anesthesia and surgery, the patient was re-evaluated, there was verification of: *The patient's identity *The results of appropriate recent lab work and preoperative vital signs *The above evaluation not changing prior to induction *Anesthetic plan, risk benefits, alternative and complications discussed with patient/family; questions answered; patient/family understands, accepts and wishes to proceed. TAZ SAHU MD Aug 29, 2018 15:25
[2018-08-29 15:30] VITALS: BP 127/75; PULSE 55; RESP 20
--- NOTE | 2018-08-29 15:33 | OPPN ---
Date/Time of Note Date/Time of Note DATE: 08/29/18 TIME: 15:26 Anesthesia Follow up Anesthesia Follow up Last documented vital signs Vital Signs Date Temp Pulse Resp B/P (MAP) Pulse Ox O2 O2 Flow FiO2 Time Delivery Rate 08/29/18 98.2 66 18 123/63 92 Room Air 07:47 (83) Respiratory function: WNL Cardiovascular function: WNL Comments Patient is a 38 yr old female, morbidly obese, has had spinal anesthesia about 4 days ago for D&C and IUD removal and has had headache nausea vomiting on and off since the procedure.she is feeling better today and was walking around, headache is not as bad but she feels more comfortable to get norberto blood patch so she won't need to come back for further treatment. She had no other neurological deficit. Alert and oriented. No weakness or paresthesia reported. vital signs are stable she is afebrile. She was consented for Epidural blood patch the possible risks and complications were explained to her she agreed to proceed. She was placed in sitting position prepped with bethadine and epidural space was located using normal saline loss of resistance technique by tuohey 16 G needle and 15CC of her own blood which was drawn under sterile condition and slowly injected epidurally. She was placed in supine posiiton afterwards and 1 liter IV LR bolus ordered, she was recommended to hydrate and drink caffeinated beverages. She will be followed by her primary team thank you for the consult pls reconsult PRN. TAZ SAHU MD Aug 29, 2018 15:33
[2018-08-29] MEDS: morphine 2 MG INJ IV PRN ×2 (15:43→19:52)
[2018-08-29] MEDS: METOCLOPRAMIDE 10 MG INJ IV PRN ×2 (15:44→19:55)
[2018-08-29] MEDS ORDERED: LACTATED RINGER'S 1,000 ML IV ONE (16:00)
--- NOTE | 2018-08-29 16:33 | PAC ---
Date/Time of Note Date/Time of Note DATE: 08/29/18 TIME: 16:33 Post-Anesthesia Notes Post-Anesthesia Note Last documented vital signs Vital Signs Date Temp Pulse Resp B/P (MAP) Pulse Ox O2 O2 Flow FiO2 Time Delivery Rate 08/29/18 98.1 55 20 127/75 96 Room Air 15:30 (92) 08/29/18 98.2 07:47 Activity: WNL Respiratory function: WNL Cardiovascular function: WNL Mental status: Baseline Pain reasonably controlled: Yes Hydration appropriate: Yes Nausea/Vomiting absent: Yes TAZ SAHU MD Aug 29, 2018 16:33
[2018-08-29] MEDS: BACLOFEN 10 MG TAB PO PRN (18:57)
[2018-08-29 19:20] VITALS: BP 122/58; PULSE 79; RESP 18
[2018-08-29] MEDS: ACET/BUTAL/CAFF TAB PO PRN (20:55)
[2018-08-29] MEDS ORDERED: DIAZEPAM 5 MG/ML SYG IV ONE (21:40)
[2018-08-29] MEDS: RHOPRESSA 0.02% BOTH EYES SCH (21:45)
[2018-08-30] MEDS: morphine 2 MG INJ IV PRN ×2 (00:54→07:57)
[2018-08-30] MEDS: METOCLOPRAMIDE 10 MG INJ IV PRN ×2 (00:54→07:57)
[2018-08-30 01:32] VITALS: BP 107/59; PULSE 68; RESP 18
[2018-08-30] MEDS: PANTOPRAZOLE (EC) 40 MG TAB PO SCH (05:36)
[2018-08-30 07:28] VITALS: BP 108/69; PULSE 70; RESP 18
[2018-08-30] MEDS: BACLOFEN 10 MG TAB PO PRN (07:57)
[2018-08-30] MEDS: DORZOLAMIDE/TIMOLOL 10 ML OPH RIGHT EYE SCH (09:27)
[2018-08-30] MEDS: BRIMONIDINE 0.15% 5 ML OPH RIGHT EYE SCH (09:27)
[2018-08-30] MEDS: PREDNISOLONE ACET 1% 5 ML OPH BOTH EYES SCH (09:27)
[2018-08-30] MEDS ORDERED: DIAZ2TAB3 PO (12:02)
[2018-08-30] MEDS ORDERED: BACL10TA PO (12:02)
--- NOTE | 2018-08-30 12:06 | PDOCDIS ---
Discharge Instructions DIAGNOSIS Discharge Diagnosis Acute on chronic lower back pain Migraine headache CONDITION [id number] Patient Condition: [id number] Fair HOME CARE INSTRUCTIONS: [id number] Diet Instructions: [id number] Reduced Calorie ACTIVITY: [id number] Activity Restrictions: [id number] Slowly Increase Activity FOLLOW UP/APPOINTMENTS Follow-up Plan 1. Stay active and continue to walk. Bedrest will worsen your back pain. 2. See your primary care doctor in 1-2 weeks. 3. For lower back pain; take ibuprofen and tylenol as needed. 4. For muscle spasms or cramping back pain not responsive to the above, take baclofen up to three times daily. Use caution when driving after taking this medicine. 5. For severe pain not responsive to baclofen, take diazepam (valium). Don't drive after taking it. 6. Return to the emergency room for severe back pain or headache not responsive to the above. DENNIS MCKEON MD Aug 30, 2018 12:06
[2018-08-30 14:27] VITALS: BP 116/58; PULSE 74; RESP 18
--- NOTE | 2018-08-30 17:02 | DS ---
Date/Time of Note Date/Time of Note DATE: 08/30/18 TIME: 16:59 Discharge Summary Admission/Discharge Info Admit Date/Time Aug 26, 2018 Discharge Date/Time Aug 30, 2018 at 14:12 Discharge Diagnosis Acute on chronic lower back pain Migraine headache Patient Condition: Good Consults Dr. Jasso, anesthesia Procedures Lumbar blood patch 08/29/18 Hx of Present Illness Chief complaint:: Vaginal bleeding this is a 38-year-old female With a past medical history of fibromyalgia and rheumatoid arthritis who presented to [facility] complaining of vomiting for more than 5 days. Patient also has nausea and abdominal pain or vaginal bleeding with approximately 6 pads over the past 2 days. She will reported migraines as well as dizziness and feeling off balance. She denies any fevers chills or cough or chest pain or shortness of breath. Patient had a D&C and IUD removal on 08/22/2018 by . Because she continued to have her bleeding symptoms she contacted her OB doctor who told her to go to [facility]. Patient subsequently transferred to [facility] secondary to insurance purposes. Vital signs at [facility]: Temperature 36.9C/BP 150/78/respirations 20/heart rate 59/SPO2 91% on room air Pertinent laboratory findings from transfer facility showed: Urinalysis large blood, specific gravity 1.050 CBC: White blood cells 11.8/hemoglobin 12.5/hematocrit 39.5/platelets 280 INR 1.3 PT [address] abdomen pelvis with IV contrast showed: No acute inflammatory process mass or adenopathy. Cholelithiasis no obvious CT evidence of acute cholecystitis. Fatty change of liver. 1.6 cm Bartholin gland cyst in the vaginal. No secon destiny signs of appendicitis. Bilateral ovarian cysts/follicles. If indicated this can be better evaluated pelvic ultrasound. Allergies: NKDA Medications: See AUG Hospital Course She was managed supportively for a few days, nausea resolved, she was able to tolerate PO. However positional headache remained and did not resolve. Anesthesia was consulted and blood patch was done 08/29. Afterwards she did continue to have aching and spasm-type back pain but otherwise was ambulatory, tolerating diet. Home Meds Active Scripts Baclofen* (Baclofen*) 10 Mg Tablet, 20 MG PO TID PRN for muscle spasm, #60 TAB Prov:DENNIS MCKEON MD 08/30/18 Diazepam* (Diazepam*) 2 Mg Tablet, 2 MG PO Q6, #20 TAB Prov:DENNIS MCKEON MD 08/30/18 Reported Medications [Rhopressa] No Conflict Check, 1 DROP BOTH EYES QHS 08/27/18 Omeprazole* (Omeprazole*) 40 Mg Capsule.dr, 40 MG ORAL DAILY 08/22/18 Ranitidine Hcl* (Ranitidine Hcl*) 150 Mg Tablet, 150 MG ORAL BID 08/22/18 Ibuprofen* (Ibuprofen*) 800 Mg Tablet, 800 MG ORAL Q6 PRN for PAIN LEVEL 6-10 08/22/18 Dorzolamide/Timolol* (Dorzolamide/Timolol*) 10 Ml Drops, 1 DROP RIGHT EYE BID 08/22/18 Brimonidine Tartrate* (Brimonidine Tartrate*) 0.15%-10ML Drop Opht, 1 DROP RIGHT EYE BID 08/22/18 Prednisolone Acetate* (Pred Forte*) 5 Ml Susp, 1 DROP BOTH EYES BID 08/22/18 Acetazolamide* (Acetazolamide*) 250 Mg Tablet, 1 TAB ORAL BID 08/22/18 Follow-up Plan 1. Stay active and continue to walk. Bedrest will worsen your back pain. 2. See your primary care doctor in 1-2 weeks. 3. For lower back pain; take ibuprofen and tylenol as needed. 4. For muscle spasms or cramping back pain not responsive to the above, take baclofen up to three times daily. Use caution when driving after taking this medicine. 5. For severe pain not responsive to baclofen, take diazepam (valium). Don't drive after taking it. 6. Return to the emergency room for severe back pain or headache not responsive to the above. Primary Care Provider Not On Staff Doctor Time spent on discharge: > 30 minutes DENNIS MCKEON MD Aug 30, 2018 17:02
== END 2018-08-30 14:12 | disposition home or self-care (01) | DRG 103 ==
LOC: MS1 19:44 → INTOOBSV 19:44 → OBSVTOIN 08-28 11:56
PROVIDERS: ADMIT Internal Medicine; ATTEND Internal Medicine
PROC: 3E0R3GC Introduction of Other Therapeutic Substance into Spinal Canal, Percutaneous Approach (ICD-10-PCS; principal; 2018-08-29)
DX: G44.40 Drug-induced headache, not elsewhere classified, not intractable (principal); Z68.42 Body mass index [BMI] 45.0-49.9, adult; M54.5 Low back pain; E66.01 Morbid (severe) obesity due to excess calories; T41.3X5A Adverse effect of local anesthetics, initial encounter; M06.9 Rheumatoid arthritis, unspecified; M79.7 Fibromyalgia; G43.909 Migraine, unspecified, not intractable, without status migrainosus; H40.9 Unspecified glaucoma; N93.8 Other specified abnormal uterine and vaginal bleeding; Y92.019 Unspecified place in single-family (private) house as the place of occurrence of the external cause
CPT/HCPCS: 80048; 80053; 83735; 84100; 84443; 85025; 99217; C9113; G0378; J2270; J2405; J2765; J3360; J3475; J3480; J7120